=== PATIENT | female | born 1990 | race Caucasian/White ===

== ENCOUNTER 2019-01-18 13:47 | Emergency (ER) | payer SELFPAY ==
[~2019-01-18] VITALS: Ht 165.1 cm; Wt 139.3 kg
[2019-01-18] MEDS ORDERED: IBUPROFEN 600 MG (MOTRIN) TAB PO ONE (14:15)
[2019-01-18] MEDS ORDERED: diphenhydrAMINE 25 MG TAB (BENADRYL) PO ONE (14:15)
--- NOTE | 2019-01-18 14:23 | ED General ---
General Chief Complaint: Bite-Animal/Human/Insect Stated Complaint: SPIDER BITE ON LIP - DIZZY,NAUSEA Source of Information: Patient History of Present Illness Date Seen by Provider: Jan 18, 2019 Time Seen by Provider: 14:00 Initial Comments Patient is a 28-year-old female who presents with lip tingling, dizziness and nausea and body aches after being bit by a spider on the right lower lip. This happened during breakfast while eating. The spider was found in the food. The patient is currently camping. Patient denies shortness of breath wheezing, chest tightness, airway swelling, rash and itching. Patient denies spider allergies to spiders. No medications or therapy as taken prior to ED arrival. Timing/Duration: 1-3 Hours Associated Systoms: Malaise Allergies and Home Medications Allergies Coded Allergies: latex (Verified Allergy, Unknown, 01/18/19) nickel (Verified Allergy, Unknown, 01/18/19) Uncoded Allergies: WASPS (Allergy, Unknown, 01/18/19) Patient Home Medication List Home Medication List Reviewed: Yes Review of Systems Review of Systems Constitutional: see HPI EENTM: see HPI Respiratory: no symptoms reported Cardiovascular: no symptoms reported Gastrointestinal: no symptoms reported Musculoskeletal: muscle cramps Skin: no symptoms reported Psychiatric/Neurological: No Symptoms Reported Hematologic/Lymphatic: No Symptoms Reported Past Dtqkozk-Qmpoij-Igmmlb Hx Past Med/Social Hx: Reviewed Nursing Past Med/Soc Hx Physical Exam Vital Signs Vital Signs - First Documented 01/18/19 13:55 Temp 98.2 Pulse 91 Resp 18 B/P (MAP) 137/78 (97) Pulse Ox 95 O2 Delivery Room Air Capillary Refill : Height, Weight, BMI Height: '" Weight: lbs. oz. kg; BMI Method: General Appearance: No Apparent Distress, WD/WN Eyes: Bilateral Eye Normal Inspection, Bilateral Eye PERRL, Bilateral Eye EOMI HEENT: PERRL/EOMI, Normal ENT Inspection, Pharynx Normal Neck: Normal Inspection, Non Tender Respiratory: Chest Non Tender, Lungs Clear, Normal Breath Sounds Cardiovascular: Regular Rate, Rhythm, No Gallop Gastrointestinal: Normal Bowel Sounds, Soft Back: Normal Inspection Extremity: Normal Capillary Refill, Normal Inspection, Non Tender Neurologic/Psychiatric: Alert, Oriented x3, No Motor/Sensory Deficits, Normal Mood/Affect, ortho tech II-XII Norm as Tested Focused Exam Sepsis Stage: Ruled Out Progress/Results/Core Measures Suspected Sepsis SIRS Temperature: Pulse: Respiratory Rate: Blood Pressure / Mean: Results/Orders My Orders Orders - FAHAD ALANIZ DO Diphenhydramine Tablet (Benadryl Tablet) (01/18/19 14:15) Ibuprofen Tablet (Motrin Tablet) (01/18/19 14:15) Medications Given in ED Current Medications Medications Dose Ordered Sig/Char Route Start Time Stop Time Status Last Admin Dose Admin Diphenhydramine HCl 25 mg ONCE ONCE PO 01/18/19 14:15 01/18/19 14:16 DC 01/18/19 14:33 25 MG Ibuprofen 600 mg ONCE ONCE PO 01/18/19 14:15 01/18/19 14:16 DC 01/18/19 14:34 600 MG Vital Signs/I&O 01/18/19 13:55 Temp 98.2 Pulse 91 Resp 18 B/P (MAP) 137/78 (97) Pulse Ox 95 O2 Delivery Room Air Capillary Refill : Departure Communication (Admissions) Patient was stable vital signs and unremarkable physical exam. Benadryl and ibuprofen given. Patient monitored in the emergency department. States her symptoms are improved and requests discharge. Recommend continued supportive car e watchful waiting and return to ED as needed. Impression Primary Impression: Insect bite - wound Disposition: 01 HOME, SELF-CARE Condition: Improved Departure-Patient Inst. Referrals: NO,LOCAL PHYSICIAN (PCP/Family) Primary Care Physician Patient Instructions: Insect Bites and Stings (DC) Add. Discharge Instructions: Please take ibuprofen and benadryl as needed if symptoms continue. Return to the ED if new or concerning symptoms. All discharge instructions reviewed with patient and/or family. Voiced understanding. FAHAD ALANIZ DO Jan 18, 2019 14:23
[2019-01-18 15:02] VITALS: BP 137/78
== END 2019-01-18 15:02 | disposition home or self-care (01) ==
LOC: ER FS 13:49
DX: S00.561A Insect bite (nonvenomous) of lip, initial encounter (principal); Z91.040 Latex allergy status; Z88.8 Allergy status to other drugs, medicaments and biological substances; W57.XXXA Bitten or stung by nonvenomous insect and other nonvenomous arthropods, initial encounter
CPT/HCPCS: 99283

== ENCOUNTER 2019-02-13 23:52 | Emergency (ER) | payer SELFPAY ==
[~2019-02-13] VITALS: Ht 165.1 cm; Wt 139.3 kg
[2019-02-14] MEDS ORDERED: NS IV 1000 ML 1,000 ML IV SCH (00:30)
[2019-02-14] MEDS ORDERED: KETOROLAC 30 MG/ML VIAL IVP ONE (00:30)
[2019-02-14] MEDS ORDERED: ONDANSETRON 4 MG/2 ML (SDV) Z0FRAN IVP ONE (00:30)
--- NOTE | 2019-02-14 00:41 | ED General ---
General Chief Complaint: General Problems/Pain Stated Complaint: DIZZY, NAUSEA, ABD PAIN, CHILLS, NECK PAIN Nursing Triage Note: Patient states that she has been having a fever and sore throat for the last 2 days. Patient also has complaints of neck stiffness, bilateral siatica pain, right and left lower quadrant abdominal pain and current high fevers. Patient states that she has not taken any Tylenol or Ibuprofen. Patient was seen last night a [facility]. Patient was diagnosed with viral illness and sent home. Patient believes that they missed something and presents here today. Nursing Sepsis Screen: No Definite Risk History of Present Illness Date Seen by Provider: Feb 14, 2019 Time Seen by Provider: 00:35 Initial Comments The patient is a morbidly obese 28-year-old female who presents for evaluation of multiple complaints. After speaking with her at length her primary complaint at this time is right lower quadrant abdominal pain, intermittent fever, and some nausea. She was having some anterior neck discomfort as well as the other symptoms above and went to a different emergency department yesterday evening where she had laboratory testing performed as well as a rapid strep and all that was unremarkable. She states that an x-ray of her abdomen was performed which showed a "air bubble next to her appendix". She was upset that there was no CT scan performed and would like that done tonight. She is alert and oriented 4, calm, and appears to be in no distress. She denies chest pain or shortness of breath, headache, vision changes, back or flank pain, palpitations, hematemesis, rectal bleeding, diarrhea, pelvic pain/bleeding/discharge, or syncope. She has had a normal appetite and has been eating well. Timing/Duration: 3-4 Days Severity: Moderate Modifying Factors: improves with Movement (Worse), improves with Rest (Plan better) Allergies and Home Medications Allergies Coded Allergies: latex (Verified Allergy, Unknown, 01/18/19) nickel (Verified Allergy, Unknown, 01/18/19) Uncoded Allergies: WASPS (Allergy, Unknown, 01/18/19) Patient Home Medication List Home Medication List Reviewed: Yes Review of Systems Review of Systems Constitutional: no symptoms reported EENTM: no symptoms reported Respiratory: no symptoms reported Cardiovascular: no symptoms reported Gastrointestinal: abdominal pain (RLQ), nausea, vomiting Genitourinary: no symptoms reported : No Musculoskeletal: no symptoms reported Skin: no symptoms reported Psychiatric/Neurological: No Symptoms Reported Hematologic/Lymphatic: No Symptoms Reported Immunological/Allergic: no symptoms reported All Other Systems Reviewed Negative Unless Noted: Yes Past Knhugyx-Mmvcvo-Yfzpvk Hx Past Med/Social Hx: Reviewed Nursing Past Med/Soc Hx Patient Social History Alcohol Use: Denies Use Recreational Drug Use: No Smoking Status: Never a Smoker Type Used: Cigarettes 2nd Hand Smoke Exposure: No Recent Foreign Travel: No Contact w/Someone Who Travel: No Recent Infectious Disease Expo: No Recent Hopitalizations: No Physical Abuse: No Sexual Abuse: No Mistreated: No Fear: No Seasonal Allergies Seasonal Allergies: No Past Medical History Surgeries: Yes (Right side leg hematoma) Respiratory: No Cardiac: No Neurological: Yes Genitourinary: No Gastrointestinal: No Musculoskeletal: Yes Fibromyalgia Endocrine: Yes (Hypoglycemia) HEENT: No Cancer: No Psychosocial: No Integumentary: No Blood Disorders: No Physical Exam Vital Signs Vital Signs - First Documented 02/14/19 00:00 Temp 97.0 Pulse 88 Resp 20 B/P (MAP) 155/98 (117) Pulse Ox 94 O2 Delivery Room Air Capillary Refill : Less Than 3 Seconds Height, Weight, BMI Height: 5'5.00" Weight: 307lbs. 0oz. 139.774933zk; BMI Method:Stated General Appearance: No Apparent Distress, WD/WN, Obese HEENT: PERRL/EOMI, Pharynx Normal, Other (. Oropharynx is unremarkable) Neck: Full Range of Motion, Normal Inspection, Non Tender, Supple, Other (no cervical lymphadenopathy noted, no midline cervical tenderness, negative Kernig's and Brudzinski signs) Respiratory: Chest Non Tender, No Accessory Muscle Use, No Respiratory Distress Cardiovascular: Regular Rate, Rhythm, No Edema Gastrointestinal: Normal Bowel Sounds, Soft, Tenderness (tender to palpation in the right lower quadrant) Back: Normal Inspection, No CVA Tenderness Extremity: Normal Capillary Refill, Non Tender Neurologic/Psychiatric: Alert, Oriented x3, No Motor/Sensory Deficits, Normal Mood/Affect, infrastructure technician II-XII Norm as Tested Skin: Normal Color, Warm/Dry Progress/Results/Core Measures Suspected Sepsis Recent Fever Within 48 Hours: Yes Infection Criteria Present: Suspected New Infection New/Unexplained Altered Menta: No Sepsis Screen: No Definite Risk SIRS Temperature:97.0 Pulse: 88 Respiratory Rate: 20 Laboratory Tests 02/14/19 00:37: White Blood Count 7.2 Blood Pressure 155 /98 Mean: 117 Laboratory Tests 02/14/19 00:37: Creatinine 0.86, Platelet Count 317, Total Bilirubin 0.3 Results/Orders Lab Results Laboratory Tests Test 02/14/19 00:37 Range/Units White Blood Count 7.2 4.3-11.0 10^3/uL Red Blood Count 4.72 4.35-5.85 10^6/uL Hemoglobin 12.9 11.5-16.0 G/DL Hematocrit 41 35-52 % Mean Corpuscular Volume 86 80-99 FL Mean Corpuscular Hemoglobin 27 25-34 PG Mean Corpuscular Hemoglobin Concent 32 32-36 G/DL Red Cell Distribution Width 14.8 H 10.0-14.5 % Platelet Count 317 130-400 10^3/uL Mean Platelet Volume 11.0 H 7.4-10.4 FL Neutrophils (%) (Auto) 58 42-75 % Lymphocytes (%) (Auto) 30 12-44 % Monocytes (%) (Auto) 10 0-12 % Eosinophils (%) (Auto) 1 0-10 % Basophils (%) (Auto) 1 0-10 % Neutrophils # (Auto) 4.2 1.8-7.8 X 10^3 Lymphocytes # (Auto) 2.2 1.0-4.0 X 10^3 Monocytes # (Auto) 0.8 0.0-1.0 X 10^3 Eosinophils # (Auto) 0.1 0.0-0.3 10^3/uL Basophils # (Auto) 0.0 0.0-0.1 10^3/uL Urine Color YELLOW Urine Clarity SLT CLOUDY Urine pH 6.0 5-9 Urine Specific [place] 1.025 H 1.016-1.022 Urine Protein NEGATIVE NEGATIVE Urine Glucose (UA) NEGATIVE NEGATIVE Urine Ketones NEGATIVE NEGATIVE Urine Nitrite NEGATIVE NEGATIVE Urine Bilirubin NEGATIVE NEGATIVE Urine Urobilinogen 0.2 NORMAL MG/DL Urine Leukocyte Esterase TRACE H NEGATIVE Urine RBC (Auto) NEGATIVE NEGATIVE Urine RBC NONE /HPF Urine WBC 0-2 /HPF Urine Squamous Epithelial Cells 2-5 /HPF Urine Crystals NONE /LPF Urine Bacteria MODERATE H /HPF Urine Casts NONE /LPF Urine Mucus SMALL H /LPF Urine Culture Indicated YES Urine Test NEGATIVE NEGATIVE Sodium Level 139 135-145 MMOL/L Potassium Level 4.1 3.6-5.0 MMOL/L Chloride Level 99 98-107 MMOL/L Carbon Dioxide Level 24 21-32 MMOL/L Anion Gap 16 H 5-14 MMOL/L Blood Urea Nitrogen 7 7-18 MG/DL Creatinine 0.86 0.60-1.30 MG/DL Estimat Glomerular Filtration Rate > 60 BUN/Creatinine Ratio 8 Glucose Level 103 70-105 MG/DL Calcium Level 9.5 8.5-10.1 MG/DL Corrected Calcium 9.4 8.5-10.1 MG/DL Total Bilirubin 0.3 0.1-1.0 MG/DL Aspartate Amino Transf (AST/SGOT) 20 5-34 U/L Alanine Aminotransferase (ALT/SGPT) 24 0-55 U/L Alkaline Phosphatase 99 40-136 U/L Total Protein 7.8 6.4-8.2 GM/DL Albumin 4.1 3.2-4.5 GM/DL Lipase 23 8-78 U/L My Orders Orders - RAYMUNDO RAMOS DO Cbc With Automated Diff (02/14/19 00:30) Comprehensive Metabolic Panel (02/14/19 00:30) Iv/Invasive Line Insertion .IV start (02/14/19 00:30) Ua Culture If Indicated (02/14/19 00:30) Ct Abdomen/Pelvis W (02/14/19 00:30) Lipase (02/14/19 00:30) Ns Iv 1000 Ml (Sodium Chloride 0.9%) (02/14/19 00:30) Ketorolac Injection (Toradol Injection) (02/14/19 00:30) Ondansetron Injection (Zofran Injectio (02/14/19 00:30) Hcg,Qualitative Urine (02/14/19 00:30) Urine Culture (02/14/19 00:37) Iohexol Injection (Omnipaque 350 Mg/Ml 1 (02/14/19 01:15) Received Contrast (Hold Metformin- Contr (02/14/19 01:15) Ns (Ivpb) (Sodium Chloride 0.9% Ivpb Bag (02/14/19 01:15) Ceftriaxone For Iv Use (Rocephin For I (02/14/19 01:15) Medications Given in ED Current Medications Medications Dose Ordered Sig/Char Route Start Time Stop Time Status Last Admin Dose Admin Ceftriaxone Sodium 1000 mg/ Sterile Water 10 ml @ 200 mls/hr ONCE ONCE IV 02/14/19 01:15 02/14/19 01:17 DC 02/14/19 01:30 200 MLS/HR Iohexol 100 ml ONCE ONCE IV 02/14/19 01:15 02/14/19 01:16 DC 02/14/19 01:16 100 ML Ketorolac Tromethamine 30 mg ONCE ONCE IVP 02/14/19 00:30 02/14/19 00:34 DC 02/14/19 00:46 30 MG Ondansetron HCl 4 mg ONCE ONCE IVP 02/14/19 00:30 02/14/19 00:34 DC 02/14/19 00:46 4 MG Sodium Chloride 100 ml ONCE ONCE IV 02/14/19 01:15 02/14/19 01:16 DC 02/14/19 01:16 40 ML Vital Signs/I&O 02/14/19 00:00 Temp 97.0 Pulse 88 Resp 20 B/P (MAP) 155/98 (117) Pulse Ox 94 O2 Delivery Room Air Capillary Refill : Less Than 3 Seconds Blood Pressure Mean: 117 Progress Note : Progress Note Patient updated on lab and imaging results. Workup today fails to reveal any emergent pathology. The patient is playing games on her cell phone and appears comfortable. She is stable for discharge at this time. Advised close follow-up with her primary care physician in one to 2 days and return to the emergency department for new or worsening symptoms. Departure Impression Primary Impression: UTI (urinary tract infection) Disposition: 01 HOME, SELF-CARE Condition: Stable Departure-Patient Inst. Decision time for Depature: 02:18 Referrals: NO,LOCAL PHYSICIAN (PCP/Family) Primary Care Physician Patient Instructions: Acute Abdomen (Belly Pain), Adult (DC), Ovarian Cyst (DC) Add. Discharge Instructions: Follow-up with your doctor in the next 1-2 days. Return to the ER for new or worsening symptoms. Drink plenty of water at home and take ibuprofen for pain relief. RAYMUNDO RAMOS DO Feb 14, 2019 00:41
[2019-02-14 00:49] LABS: HEMATOCRIT 41 % (35-52); HEMOGLOBIN 12.9 G/DL (11.5-16.0); MEAN CORPUSCULAR HEMOGLOBIN 27 PG (25-34); WHITE BLOOD COUNT 7.2 10^3/uL (4.3-11.0)
[2019-02-14 00:50] LABS: BASOPHILS % (AUTO) 1 % (0-10); EOSINOPHILS # (AUTO) 0.1 10^3/uL (0.0-0.3); EOSINOPHILS % (AUTO) 1 % (0-10); LYMPHOCYTES # (AUTO) 2.2 X 10^3 (1.0-4.0); LYMPHOCYTES % (AUTO) 30 % (12-44); MEAN CORPUSCULAR HGB CONC 32 G/DL (32-36); MEAN CORPUSCULAR VOLUME 86 FL (80-99); MONOCYTES # (AUTO) 0.8 X 10^3 (0.0-1.0); MONOCYTES % (AUTO) 10 % (0-12); NEUTROPHILS # (AUTO) 4.2 X 10^3 (1.8-7.8); NEUTROPHILS % (AUTO) 58 % (42-75); PLATELET COUNT 317 10^3/uL (130-400); RED CELL DISTRIBUTION WIDTH 14.8 % (10.0-14.5)
[2019-02-14 00:58] LABS: COLOR,URINE YELLOW
[2019-02-14 00:59] LABS: BACTERIA,URINE MODERATE /HPF; BILIRUBIN,URINE NEGATIVE (NEGATIVE); CLARITY,URINE SLT CLOUDY; GLUCOSE, URINE (UA) NEGATIVE (NEGATIVE); KETONES,URINE NEGATIVE (NEGATIVE); LEUKOCYTE ESTERASE ,URINE TRACE (NEGATIVE); NITRITE,URINE NEGATIVE (NEGATIVE); PROTEIN,URINE NEGATIVE (NEGATIVE); UROBILINOGEN,URINE 0.2 MG/DL (NORMAL); WBC,URINE 0-2 /HPF
[2019-02-14 01:15] LABS: ALANINE AMINOTRANSFERASE 24 U/L (0-55); ALKALINE PHOSPHATASE 99 U/L (40-136); BILIRUBIN,TOTAL 0.3 MG/DL (0.1-1.0); BUN/CREATININE RATIO 8; CALCIUM 9.5 MG/DL (8.5-10.1); CARBON DIOXIDE 24 MMOL/L (21-32); CHLORIDE 99 MMOL/L (98-107); CREATININE SERUM 0.86 MG/DL (0.60-1.30); GFR ESTIMATED > 60; GLUCOSE 103 MG/DL (70-105); POTASSIUM 4.1 MMOL/L (3.6-5.0); SODIUM 139 MMOL/L (135-145); TOTAL PROTEIN 7.8 GM/DL (6.4-8.2)
[2019-02-14] MEDS ORDERED: HOLD METFORMIN - RECEIVED CONTRAST 20 ML VIAL IV SCH (01:15)
[2019-02-14] MEDS ORDERED: NS 100 ML (IVPB) BAG IV ONE (01:15)
[2019-02-14] MEDS ORDERED: IOHEXOL 350 MG/ML 100 ML (OMNIPAQUE 350) VIAL IV ONE (01:15)
[2019-02-14] MEDS ORDERED: cefTRIAXone FOR IV USE 1,000 MG in WATER (STERILE) FOR INJECTION 10 ML IV ONE (01:15)
[2019-02-14 01:16] LABS: ALBUMIN 4.1 GM/DL (3.2-4.5); LIPASE 23 U/L (8-78)
[2019-02-14 02:22] VITALS: BP 136/82
--- NOTE | 2019-02-14 06:59 | Diagnostic Imaging Report ---
PROCEDURE: CT abdomen and pelvis with contrast. TECHNIQUE: Multiple contiguous axial images were obtained through the abdomen and pelvis after administration of intravenous contrast. Auto Exposure Controls were utilized during the CT exam to meet ALARA standards for radiation dose reduction. INDICATION: Fever and sore throat with neck stiffness, bilateral sciatic pain and abdominal pain. FINDINGS: The heart size is normal. The lung bases are clear. There is hepatomegaly and fatty infiltration of the liver. The gallbladder is unremarkable. There is no biliary duct dilatation. Spleen is normal. The pancreas, adrenal glands, and kidneys are unremarkable. The aorta is nonaneurysmal. The bowel gas pattern is nonspecific. The appendix is normal. There is no free air. There is no ascites. There are no focal inflammatory changes. There is a 3 cm cyst in the left adnexa. Uterus is unremarkable. There is no ascites. The osseous structures are unremarkable. IMPRESSION: Hepatomegaly and fatty infiltration of the liver. A 3 cm cystic mass in the left hemipelvis presumably of ovarian origin. This could be better evaluated with pelvic ultrasound if clinically warranted. No other acute abnormality in the abdomen or pelvis Dictated by: Dictated on workstation # [id number]
== END 2019-02-14 02:21 | disposition home or self-care (01) ==
LOC: EDUNIT# 23:52 → ER FS 23:54
DX: N39.0 Urinary tract infection, site not specified (principal); M79.7 Fibromyalgia; Z91.040 Latex allergy status; Z88.8 Allergy status to other drugs, medicaments and biological substances
CPT/HCPCS: 36415; 74177; 80053; 81000; 83690; 84703; 85025; 87088; 96361; 96374; 96375

== ENCOUNTER 2019-03-23 01:00 | Emergency (ER) | payer SELFPAY ==
[~2019-03-23] VITALS: Ht 165.1 cm; Wt 145.1 kg
--- NOTE | 2019-03-23 01:20 | ED Headache ---
General Chief Complaint: General Problems/Pain Stated Complaint: VISION LOSS Nursing Triage Note: patient reports history of migraines since 2016, but reports having 3 headaches today that caused her to lose vision for 5 to 15 minutes. reports the last episode was at 2330 on 03/22/2019 Nursing Sepsis Screen: No Definite Risk Source: patient Exam Limitations: no limitations History of Present Illness Date Seen by Provider: Mar 23, 2019 Time Seen by Provider: 01:21 Initial Comments Intermittent headaches with visual changes. Today had an episode of a headache with some blurred vision which resolved spontaneously. Presents ER due to family concerns that she's had this before over the past several years and has never had a CT scan. No increased frequency, no increase in severity. Severity/Quality: mild Location: parietal Prior Headaches/Recent Trauma: occasional headaches Associated Symptoms: No confusion, No fatigue, No facial pain, No fever/chills, No flushing, No loss of consciousness, No nausea/vomiting, No nasal congestion, No nasal drainage, No numbness in legs/feet, No seizures, No sinus infection, No stiff neck; vision changes; No weakness Allergies and Home Medications Allergies Coded Allergies: latex (Verified Allergy, Unknown, 01/18/19) nickel (Verified Allergy, Unknown, 01/18/19) Uncoded Allergies: WASPS (Allergy, Unknown, 01/18/19) Patient Home Medication List Home Medication List Reviewed: Yes Review of Systems Review of Systems Constitutional: no symptoms reported; No see HPI, No chills, No diaphoresis, No dizziness, No fever, No malaise, No weakness, No weight gain, No weight loss, No other Eyes: Denies No Symptoms Reported, Denies See HPI, Denies Blindness; Blurred Vision; Denies Drainage, Denies Decreased Acuity, Denies Foreign Body Sensation, Denies Inflammation, Denies Pain, Denies Photophobia, Denies Previous Injury, Denies Shadows, Denies Tunnel Vision, Denies Vision Changes, Denies Contact Lenses, Denies Glasses, Denies Other Ears, Nose, Mouth, Throat: no symptoms reported; denies see HPI, denies ear pain, denies ear discharge, denies nose pain, denies nose discharge, denies epistaxis, denies mouth pain, denies mouth swelling, denies loose teeth, denies throat pain, denies throat swelling Gastrointestinal: loss of appetite, nausea, vomiting Psychiatric/Neurological: Headache; Denies Numbness, Denies Paresthesia, Denies Pre-Existing Deficit, Denies Seizure Past Xqkzkzt-Pcjlbh-Cavbpp Hx Patient Social History Alcohol Use: Denies Use Recreational Drug Use: No Type Used: Cigarettes 2nd Hand Smoke Exposure: No Recent Foreign Travel: No Contact w/Someone Who Travel: No Recent Infectious Disease Expo: No Recent Hopitalizations: No Seasonal Allergies Seasonal Allergies: No Past Medical History Surgeries: Yes (Right side leg hematoma) Joint Replacement Respiratory: Yes Sleep Apnea Cardiac: No Neurological: Yes Headaches /Migraines Genitourinary: No Gastrointestinal: No Musculoskeletal: Yes Fibromyalgia Endocrine: Yes (Hypoglycemia) HEENT: No Cancer: No Psychosocial: Yes Anxiety, Depression Integumentary: No Blood Disorders: No Physical Exam Vital Signs Vital Signs - First Documented 03/23/19 01:09 Temp 97.4 Pulse 79 Resp 18 B/P (MAP) 153/95 (114) Pulse Ox 97 Capillary Refill : Less Than 3 Seconds Height, Weight, BMI Height: 5'5.00" Weight: 320lbs. 0oz. 145.243484ce; BMI Method:Stated General Appearance: WD/WN, no apparent distress Psychiatric: alert, oriented x 3; No lethargic, No unresponsive Cra[place] Nerves: normal hearing, normal speech; No facial asymmetry, No facial droop Progress/Results/Core Measures Results/Orders Vital Signs/I&O 03/23/19 01:09 Temp 97.4 Pulse 79 Resp 18 B/P (MAP) 153/95 (114) Pulse Ox 97 Blood Pressure Mean: 114 Departure Impression Primary Impression: Migraine headache Qualified Codes: G43.909 - Migraine, unspecified, not intractable, without status migrainosus Disposition: 01 HOME, SELF-CARE Condition: Stable Departure-Patient Inst. Decision time for Depature: 01:20 Referrals: NO,LOCAL PHYSICIAN (PCP) Primary Care Physician Patient Instructions: Migraine Headaches in Adults MANUEL ALLEN DO Mar 23, 2019 01:20
[2019-03-23 01:21] VITALS: BP 153/95
== END 2019-03-23 01:22 | disposition home or self-care (01) ==
LOC: EDUNIT# 01:00 → ER FS 01:02
DX: G43.909 Migraine, unspecified, not intractable, without status migrainosus (principal); G47.30 Sleep apnea, unspecified; M79.7 Fibromyalgia; F41.9 Anxiety disorder, unspecified; F32.9 Major depressive disorder, single episode, unspecified; Z91.040 Latex allergy status; Z88.8 Allergy status to other drugs, medicaments and biological substances
CPT/HCPCS: 99281